=== PATIENT | female | born 1940 | race Caucasian/White ===

== ENCOUNTER 2018-12-03 08:43 | Emergency (ER) | payer OTHER ==
[2018-12-03 09:23] LABS: Absolute Lymphocytes (CBC) 0.6 K/uL (0.7-4.9); Absolute Monocytes 0.5 K/uL (0.1-1.3); Absolute Neutrophil 7.1 K/uL (1.8-8.0); Basophils % 0.5 % (0-1.3); Eosinophils % 0.8 % (0-4.4); Hematocrit 42.5 % (36.0-45.0); Lymphocytes % 7.3 % (15.3-44.8); MPV 7.5 fL (7.6-11.3); Monocytes % 6.6 % (3.3-12.3); RBC Red Blood Cell Count 4.81 M/uL (3.86-4.86)
[2018-12-03 09:24] LABS: Protime INR 1.03
[2018-12-03] MEDS ORDERED: IPRATROPIUM BROM 0.5MG/2.5ML ONE (09:32)
[2018-12-03] MEDS ORDERED: METHYLPREDNISOLONE 40 MG INJ ONE (09:32)
[2018-12-03] MEDS ORDERED: ALBUTEROL 2.5 MG/3 ML NEB SOL ONE (09:32)
[2018-12-03 09:46] LABS: ALT/SGPT 7 U/L (12-78); AST/SGOT 16 U/L (15-37); Albumin 3.3 g/dL (3.4-5.0); Alkaline Phosphatase 107 U/L (45-117); BUN Blood Urea Nitrogen 11 mg/dL (7-18); Bicarbonate 25 mmol/L (21-32); Bilirubin Direct 0.3 mg/dL (0-0.2); Bilirubin Total 0.9 mg/dL (0.2-1.0); Glucose Level 94 mg/dL (74-106); Magnesium 2.2 mg/dL (1.8-2.4); NT PRO-BNP 1311 pg/mL (<450); Potassium 4.6 mmol/L (3.5-5.1); Protein, Total 7.1 g/dL (6.4-8.2); Sodium Level 128 mmol/L (136-145); Troponin (Emerg Dept Use Only) < 0.02 ng/mL (0.0-0.045)
--- NOTE | 2018-12-03 10:29 | RAD REPORT ---
EXAM DESCRIPTION: RAD - Chest Single View - 12/03/2018 9:52 am CLINICAL HISTORY: Cough, shortness of breath COMPARISON: August 2018 TECHNIQUE: AP portable chest image was obtained 0922 hours . FINDINGS: Diffuse fibrotic lung pattern is present not significantly different from comparison. Tent ing of the right hemidiaphragm is noted along with bilateral costophrenic angle blunting. These findi ngs are not substantially different from comparison. No focal consolidation or mass. 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 Heart and vasculature are normal. No measurable pleural effusion and no pneumothorax. No acute bony abnormality seen. No acute aortic findings suspected. IMPRESSION: Advanced COPD changes are present not substantially different from comparison. Severity of chronic disease can mask early interstitial edema or infiltrate.
--- NOTE | 2018-12-03 11:08 | ER ---
Nurse's Notes [facility] Name: Lauryn Palm Age: 78 yrs Sex: Female : 1940 Arrival Date: 12/03/2018 Time: 08:44 Bed 8 Private MD: Bruno Guallpa E Diagnosis: Chronic obstructive pulmonary disease with acute lower respiratory infection Presentation: 12/03 08:56 Presenting complaint: Patient states: Cough, congestion, SOB x 4 days, Dr. Guallpa sent jl7 for evaluation. Transition of care: patient was not received from another setting of care. Onset of symptoms was November 29, 2018. Risk Assessment: Do you want to hurt yourself or someone else? Patient reports no desire to harm self or others. Initial Sepsis Screen: Does the patient meet any 2 criteria? No. Patient's initial sepsis screen is negative. Does the patient have a suspected source of infection? No. Patient's initial sepsis screen is negative. Care prior to arrival: None. 08:56 Method Of Arrival: Ambulatory [facility] 08:56 Acuity: TERRY 3 jl7 Triage Assessment: 09:09 General: Appears in no apparent distress. uncomfortable, Behavior is calm, cooperative, jl7 appropriate for age. Pain: Complains of pain in chest Pain does not radiate. Quality of pain is described as "Sore when coughing." Pain began 4 days ago. EENT: No signs and/or symptoms were reported regarding the EENT system. Neuro: Level of Consciousness is awake, alert, obeys commands, Oriented to person, place, time, situation. Cardiovascular: Heart tones present. Respiratory: Reports shortness of breath at rest cough that is productive, Airway is patent Respiratory effort is unlabored, shallow, Respiratory pattern is symmetrical, tachypnea Onset: The symptoms/episode began/occurred 4 days ago, the patient has mild shortness of breath. GI: No signs and/or symptoms were reported involving the gastrointestinal system. : No signs and/or symptoms were reported regarding the genitourinary system. Derm: Skin is pink, warm \\T\\ dry. Musculoskeletal: No signs and/or symptoms reported regarding the musculoskeletal system. Historical: - Allergies: 09:09 PENICILLINS; jl7 - PMHx: 09:09 COPD; Myocardial infarction; lung cancer; jl7 - PSHx: 09:09 Lobectomy, Right; jl7 - Immunization history:: Adult Immunizations unknown. - Social history:: Smoking status: Patient uses tobacco products, denies chronic smoking, but will smoke occasionally. - Ebola Screening: : No symptoms or risks identified at this time. Screenin:13 Abuse screen: Denies threats or abuse. Denies injuries from another. Nutritional jl7 screening: No deficits noted. Tuberculosis screening: No symptoms or risk factors identified. Fall Risk IV access (20 points). Total Rosenberg Fall Scale indicates No Risk (0-24 pts). Assessment: 09:13 General: See triage assessment. jl7 10:00 Reassessment: Patient appears in no apparent distress at this time. Patient and/or jl7 family updated on plan of care and expected duration. Pain level reassessed. Patient is alert, oriented x 3, equal unlabored respirations, skin warm/dry/pink. 11:00 Reassessment: Patient appears in no apparent distress at this time. No changes from jl7 previously documented assessment. Patient and/or family updated on plan of care and expected duration. Pain level reassessed. Patient is alert, oriented x 3, equal unlabored respirations, skin warm/dry/pink. Vital Signs: 09:09 BP 120 / 70; Pulse 79; Resp 28 S; Temp 97.6(O); Pulse Ox 100% on R/A; Weight 37.19 kg jl7 (R); Height 5 ft. 5 in. (165.10 cm) (R); Pain 5/10; 10:00 BP 128 / 53; Pulse 76; Resp 22 S; Pulse Ox 100% on R/A; jl7 11:00 BP 93 / 68; Pulse 109; Resp 22; Pulse Ox 95% ; jl7 12:00 BP 95 / 70; Pulse 103; Resp 21 S; Pulse Ox 96% on R/A; jl7 09:09 Body Mass Index 13.65 (37.19 kg, 165.10 cm) jl7 ED Course: 08:44 Patient arrived in ED. mr 08:44 Bruno Guallpa MD is Private Physician. mr 08:45 Yoana Hubbard, MONSTER is Primary Nurse. jl7 08:48 Syed Navarro PA is PHCP. cp 08:48 Syed Ascencio MD is Attending Physician. cp 08:57 Triage completed. jl7 09:09 Arm band placed on right wrist. jl7 09:13 Patient has correct armband on for positive identification. Placed in gown. Bed in low jl7 position. Call light in reach. Side rails up X 1. speech therapy teacher on. Pulse ox on. NIBP on. Warm blanket given. 09:13 EKG done, by bmw service technician. reviewed by Syed GONZALES. at1 09:13 Initial lab(s) drawn, by ED staff, sent to lab. Inserted saline lock: 22 gauge in right jl7 antecubital area, using aseptic technique. Blood collected. Inserted by YAMILEX Murphy. 09:54 XRAY Chest (1 view) In Process Unspecified. EDAK 11:06 Bruno Guallpa MD is Referral Physician. cp 12:03 No provider procedures requiring assistance completed. IV discontinued, intact, jl7 bleeding controlled, No redness/swelling at site. Pressure dressing applied. Administered Medications: 09:25 Drug: SOLU-Medrol 80 mg Route: IVP; Site: right antecubital; jl7 09:51 Follow up: Response: No adverse reaction jl7 09:27 Drug: Albuterol - atroVENT (3:1) (2.5 mg - 0.5 mg) 3 ml Route: Nebulizer; jl7 09:51 Follow up: Response: No adverse reaction jl7 Outcome: 11:07 Discharge ordered by MD. cp 12:03 Discharged to home via wheelchair. jl7 12:03 Condition: stable 12:03 Discharge instructions given to patient, family, Instructed on discharge instructions, follow up and referral plans. medication usage, Demonstrated understanding of instructions, follow-up care, medications, Prescriptions given X 3. 12:04 Patient left the ED. jl7 Signatures: Dispatcher [employer] EDAK Tano Sylwia Polanco, dynamite reclaimer EKG Tat1 Syed Navarro PA PA cp Leal, Jahala, RN RN jl7
--- NOTE | 2018-12-03 11:08 | EDPHYS ---
Physician Documentation [facility] Name: Lauryn Palm Age: 78 yrs Sex: Female : 1940 Arrival Date: 12/03/2018 Time: 08:44 Bed 8 Private MD: Bruno Guallpa E ED Physician Syed Ascencio HPI: 12/03 09:00 This 78 yrs old Female presents to ER via Ambulatory with complaints of cp Breathing Difficulty. 09:00 The patient has shortness of breath with light activity. cp 09:00 Onset: The symptoms/episode began/occurred 4 day(s) ago. Duration: The symptoms are cp continuous, and are steadily getting worse. Associated signs and symptoms: Pertinent positives: productive cough, Pertinent negatives: chest pain, diaphoresis, fever, hemoptysis, vomiting. Severity of symptoms: in the emergency department the symptoms are unchanged. The patient has been recently seen by a physician: Dr. Guallpa earlier today, with similar presenting complaints, and was sent to the [facility] Emergency Department for further evaluation. Historical: - Allergies: 09:09 PENICILLINS; jl7 - PMHx: 09:09 COPD; Myocardial infarction; lung cancer; jl7 - PSHx: 09:09 Lobectomy, Right; jl7 - Immunization history:: Adult Immunizations unknown. - Social history:: Smoking status: Patient uses tobacco products, denies chronic smoking, but will smoke occasionally. - Ebola Screening: : No symptoms or risks identified at this time. ROS: 09:05 Constitutional: Negative for body aches, chills, fever, poor PO intake. cp 09:05 Eyes: Negative for injury, pain, redness, and discharge. cp 09:05 ENT: Negative for drainage from ear(s), ear pain, sore throat, difficulty swallowing, difficulty handling secretions. 09:05 Cardiovascular: Negative for chest pain, edema, palpitations. 09:05 Respiratory: Positive for cough, shortness of breath, Negative for hemoptysis. 09:05 Abdomen/GI: Negative for abdominal pain, nausea, vomiting, and diarrhea, black/tarry stool, rectal bleeding. 09:05 Back: Negative for pain at rest, pain with movement, radiated pain. 09:05 : Negative for urinary symptoms. 09:05 Skin: Negative for cellulitis, rash. 09:05 Neuro: Negative for altered mental status, dizziness, headache, syncope, weakness. 09:05 All other systems are negative. Exam: 09:09 ECG was reviewed by the Attending Physician. cp 09:12 Constitutional: The patient appears in no acute distress, alert, awake, cp non-diaphoretic, non-toxic, well developed, well nourished. 09:12 Head/Face: Normocephalic, atraumatic. cp 09:12 Eyes: Periorbital structures: appear normal, Conjunctiva: normal, no exudate, no injection, Sclera: no appreciated abnormality, Lids and lashes: appear normal, bilaterally. 09:12 ENT: External ear(s): are unremarkable, Ear canal(s): are normal, clear, TM's: bulging, is not appreciated, bilaterally, dullness, bilaterally, erythema, is not appreciated, bilaterally, Nose: is normal, Mouth: Lips: moist, Oral mucosa: pink and intact, moist, Posterior pharynx: Airway: no evidence of obstruction, patent, Tonsils: are normal in appearance, Uvula: midline, swelling, is not appreciated, erythema, is not appreciated, exudate, is not appreciated. 09:12 Neck: ROM/movement: is normal, is supple, without pain, no range of motions limitations, no meningismus, no nuchal rigidity. 09:12 Chest/axilla: Inspection: normal, Palpation: is normal, no crepitus, no tenderness. 09:12 Cardiovascular: Rate: normal, Rhythm: regular, Edema: is not appreciated, JVD: is not appreciated. 09:12 Respiratory: the patient does not display signs of respiratory distress, Respirations: normal, no use of accessory muscles, no retractions, no splinting, no tachypnea, labored breathing, that is mild, Breath sounds: decreased breath sounds, that are moderate, throughout, stridor, is not appreciated. 09:12 Abdomen/GI: Inspection: abdomen appears normal, Palpation: abdomen is soft and non-tender, in all quadrants. 09:12 Skin: cellulitis, is not appreciated, no rash present. 09:12 Neuro: Orientation: to person, place \T\ time. Mentation: is normal, Cerebellar function: is grossly normal, Motor: moves all fours, strength is normal, Sensation: is normal. Vital Signs: 09:09 BP 120 / 70; Pulse 79; Resp 28 S; Temp 97.6(O); Pulse Ox 100% on R/A; Weight 37.19 kg jl7 (R); Height 5 ft. 5 in. (165.10 cm) (R); Pain 5/10; 10:00 BP 128 / 53; Pulse 76; Resp 22 S; Pulse Ox 100% on R/A; jl7 11:00 BP 93 / 68; Pulse 109; Resp 22; Pulse Ox 95% ; jl7 12:00 BP 95 / 70; Pulse 103; Resp 21 S; Pulse Ox 96% on R/A; jl7 09:09 Body Mass Index 13.65 (37.19 kg, 165.10 cm) jl7 MDM: 08:48 Patient medically screened. cp 09:00 Differential diagnosis: Bronchitis CHF exacerbation, Chronic Obstructive Pulmonary cp Disease pneumonia, Pneumothorax. 11:05 Data reviewed: vital signs, nurses notes, lab test result(s), EKG, radiologic studies, cp plain films. 11:05 Test interpretation: by ED physician or midlevel provider: ECG, plain radiologic cp studies. Counseling: I had a detailed discussion with the patient and/or guardian regarding: the historical points, exam findings, and any diagnostic results supporting the discharge/admit diagnosis, lab results, radiology results, the need for outpatient follow up, a family practitioner, to return to the emergency department if symptoms worsen or persist or if there are any questions or concerns that arise at home. Response to treatment: the patient's symptoms have markedly improved after treatment, and as a result, I will discharge patient. 12/03 08:53 Order name: Basic Metabolic Panel; Complete Time: 09:50 cp 12/03 09:50 Interpretation: Normal except: NA 128; CL 95; GFR 62. cp 12/03 08:53 Order name: CBC with Diff; Complete Time: 09:50 cp 12/03 10:32 Interpretation: Normal except: RDW 15.9; MPV 7.5; PERRY% 84.8; LYM% 7.3; LYMA 0.6. cp 12/03 08:53 Order name: LFT's; Complete Time: 09:50 cp 12/03 08:53 Order name: Magnesium; Complete Time: 09:50 cp 12/03 08:53 Order name: NT PRO-BNP; Complete Time: 09:50 cp 12/03 10:32 Interpretation: Abnormal: NT PRO-BNP 1311. cp 12/03 08:53 Order name: PT-INR; Complete Time: 09:50 cp 12/03 08:53 Order name: Troponin (emerg Dept Use Only); Complete Time: 09:50 cp 12/03 08:53 Order name: XRAY Chest (1 view); Complete Time: 10:31 cp 12/03 08:53 Order name: EKG; Complete Time: 08:54 cp 12/03 08:53 Order name: Cardiac monitoring; Complete Time: 09:26 cp 12/03 08:53 Order name: EKG - Nurse/Tech; Complete Time: 09:27 cp 12/03 08:53 Order name: Influenza Screen (a \T\ B); Complete Time: 09:50 cp 12/03 08:53 Order name: IV Saline Lock; Complete Time: 09:27 cp 12/03 08:53 Order name: Labs collected and sent; Complete Time: 09:27 cp 12/03 08:53 Order name: O2 Per Protocol; Complete Time: 09:27 cp 12/03 08:53 Order name: O2 Sat Monitoring; Complete Time: 09:27 cp 12/03 10:33 Order name: Misc. Order: ambulate patient with pulse ox on; Complete Time: 11:44 cp EC:09 Rate is 84 beats/min. Rhythm is regular. [place] interval is normal. QRS interval is normal. cp QT interval is normal. T waves are Flattened in lead aVL. Interpreted by me. Reviewed by me. Administered Medications: 09:25 Drug: SOLU-Medrol 80 mg Route: IVP; Site: right antecubital; [facility] 09:51 Follow up: Response: No adverse reaction [facility] 09:27 Drug: Albuterol - atroVENT (3:1) (2.5 mg - 0.5 mg) 3 ml Route: Nebulizer; [facility] 09:51 Follow up: Response: No adverse reaction [facility] Disposition: 12/03/18 11:07 Discharged to Home. Impression: Chronic obstructive pulmonary disease with acute lower respiratory infection. - Condition is Stable. - Discharge Instructions: Chronic Obstructive Pulmonary Disease. - Prescriptions for Tessalon Perles 100 mg Oral Capsule - take 1 capsule by ORAL route every 8 hours As needed; 20 capsule. Zithromax Z- Bill 250 mg Oral Tablet - take 1 tablet by ORAL route as directed for 5 days Day 1 - take two (2) tablets one time. Day 2, 3, 4 , 5 take one (1) tablet once daily.; 6 tablet. Prednisone 20 mg Oral Tablet - take 2 tablet by ORAL route once daily for 5 days; 10 tablet. - Medication Reconciliation Form, Thank You Letter, Antibiotic Education, Prescription Opioid Use form. - Follow up: Bruno Guallpa MD; When: 2 - 3 days; Reason: Recheck today's complaints. - Problem is an acute exacerbation. - Symptoms have improved. Addendum: 12/06/2018 05:28 Co-signature as Attending Physician, Syed Ascencio MD I agree with the assessment and c leiva plan of care. Signatures: Dispatcher [employer] EDPR Syed Ascnecio MD MD cha Page, Corey, PA PA Yoana Doss RN RN jl7 Corrections: (The following items were deleted from the chart) 12/03 12:04 11:07 12/03/2018 11:07 Discharged to Home. Impression: Chronic obstructive pulmonary jl7 disease with acute lower respiratory infection. Condition is Stable. Forms are Medication Reconciliation Form, Thank You Letter, Antibiotic Education, Prescription Opioid Use. Follow up: Bruno Guallpa; When: 2 - 3 days; Reason: Recheck today's complaints. Problem is an acute exacerbation. Symptoms have improved. cp
--- NOTE | 2018-12-03 16:22 | EKG ---
Test Date: 2018-12-03 Test Time: 09:01:08 Crime Scene Specialist: BERNARDA MEASUREMENT RESULTS: Intervals: Rate: 84 OR: 116 QRSD: 76 QT: 362 QTc: 427 [place]: P: 68 OR: 116 QRS: 64 T: 66 INTERPRETIVE STATEMENTS: Normal sinus rhythm Normal ECG No previous ECG available for comparison Electronically Signed On 12-03-18 16:20:26 FARM HELPER by Jose Real
== END 2018-12-03 12:04 | disposition home or self-care (01) ==
LOC: ER 08:43
DX: J44.0 Chronic obstructive pulmonary disease with (acute) lower respiratory infection (principal); J22 Unspecified acute lower respiratory infection; Z72.0 Tobacco use; Z88.0 Allergy status to penicillin; Z85.118 Personal history of other malignant neoplasm of bronchus and lung; Z90.2 Acquired absence of lung [part of]
CPT/HCPCS: 36415; 71045; 80048; 80076; 83735; 83880; 84484; 85025; 85610; 87804 ×2; 93005; 94640; 96374; 99285; J2920

== ENCOUNTER 2019-05-17 16:07 | Inpatient (IN) | payer OTHER ==
--- OUTSIDE RECORDS SUMMARY | 2019-05-17 16:09 | XMS REPORT ---
:1940 [facility] Rich. [address] [place] [id number] Care Team Providers Name Role Phone Unavailable Unavailable Unavailable Problems This patient has no known problems. Allergies, Adverse Reactions, Alerts This patient has no known allergies or adverse reactions. Medications This patient has no known medications.
[2019-05-17] MEDS ORDERED: NA CHLORIDE 0.9% 1,000 ML ONE (16:48)
[2019-05-17 16:50] LABS: Absolute Lymphocytes (CBC) 0.5 K/uL (0.7-4.9); Basophils % 0.2 % (0-1.3); Hematocrit 43.5 % (36.0-45.0); Lymphocytes % 6.7 % (15.3-44.8); MPV 7.3 fL (7.6-11.3); RBC Red Blood Cell Count 4.76 M/uL (3.86-4.86)
[2019-05-17] MEDS ORDERED: METHYLPREDNISOLONE 125 MG INJ ONE (16:50)
[2019-05-17] MEDS ORDERED: LEVALBUTEROL 1.25 MG/3 ML NEB ONE (16:50)
[2019-05-17 17:11] LABS: BUN Blood Urea Nitrogen 8 mg/dL (7-18); Bicarbonate 26 mmol/L (21-32); Glucose Level 107 mg/dL (74-106); NT PRO-BNP 1172 pg/mL (<450); Potassium 4.5 mmol/L (3.5-5.1); Sodium Level 128 mmol/L (136-145); Troponin (Emerg Dept Use Only) < 0.02 ng/mL (0.0-0.045)
[2019-05-17 17:24] LABS: Blood Morphology Comment NOT SEEN (NOT SEEN); Platelet Estimate ADEQ; Urine White Blood Cell Casts OK
--- NOTE | 2019-05-17 17:57 | ER ---
Nurse's Notes [facility] Name: Lauryn Palm Age: 78 yrs Sex: Female : 1940 Arrival Date: 05/17/2019 Time: 16:11 Bed 2 Private MD: Diagnosis: Chronic obstructive pulmonary disease with (acute) exacerbation Presentation: 05/17 16:12 Presenting complaint: Patient states: hx of COPD, increasing SOB X 2 weeks, diagnosed iw with bronchitis, was started on antibiotics, not getting better, +productive cough, no fever, hx of lung cancer, also has swelling to RFA and right breast, states "they don't know what's wrong with me, they think maybe it's lymph nodes from my cancer" , also ran out of her home O2, 89% RA. Transition of care: patient was not received from another setting of care. Onset of symptoms was May 02, 2019. Risk Assessment: Do you want to hurt yourself or someone else? Patient reports no desire to harm self or others. Initial Sepsis Screen: Does the patient meet any 2 criteria? RR > 20 per min. HR > 90 bpm. Does the patient have a suspected source of infection? Yes: Productive cough/pneumonia. Care prior to arrival: None. 16:12 Method Of Arrival: Wheelchair iw 16:12 Acuity: TERRY 2 iw Triage Assessment: 19:17 General: Appears in no apparent distress. Respiratory: Onset: The symptoms/episode tr5 began/occurred. Respiratory: the patient has moderate shortness of breath. Historical: - Allergies: 16:17 PENICILLINS; sg - PMHx: 16:17 COPD; Lung Cancer; Myocardial infarction; sg - PSHx: 16:17 Lobectomy, Right; sg - Immunization history:: Adult Immunizations up to date. - Social history:: Smoking status: Patient/guardian denies using tobacco. - Ebola Screening: : Patient negative for fever greater than or equal to 101.5 degrees Fahrenheit, and additional compatible Ebola Virus Disease symptoms Patient denies exposure to infectious person Patient denies travel to an Ebola-affected area in the 21 days before illness onset No symptoms or risks identified at this time. - Family history:: not pertinent. - Hospitalizations: : No recent hospitalization is reported. Screenin:30 Abuse screen: Denies threats or abuse. Denies injuries from another. Nutritional sg screening: No deficits noted. Tuberculosis screening: No symptoms or risk factors identified. Never had TB. Fall Risk None identified. Sepsis Screening: . Infection: Patient has suspected or documented infection. SIRS - Systemic Inflammatory Response Syndrome: 2 or more indicates positive screen: [heart rate greater than 90 beats per minute] [respiratory rate is greater than 20 breaths per minute]. Assessment: 16:27 General: Appears in no apparent distress. well groomed, well developed, well nourished, sg Behavior is calm, cooperative, appropriate for age. Pain: Complains of pain in buttocks Quality of pain is described as tender, reports the stretcher causes "pain on the butt bone". Neuro: Level of Consciousness is awake, alert, obeys commands, Oriented to person, place, time, Color Checker Roving Or Yarn are equal bilaterally Moves all extremities. Gait is steady. Cardiovascular: Capillary refill is brisk in bilateral fingers Patient's skin is warm and dry. Chest pain is denied. Respiratory: Airway is patent Respiratory effort is even, labored, Respiratory pattern is symmetrical, tachypnea Breath sounds are diminished in left posterior lower lobe and right posterior lower lobe. GI: Abdomen is flat, non-distended, Reports normal bowel habits, tolerance of fluids, tolerance of food. : No signs and/or symptoms were reported regarding the genitourinary system. EENT: Oral mucosa is dry. Throat is clear. Derm: Skin is pale, bilateral hands noted to be blue at this time. Musculoskeletal: Circulation, motion, and sensation intact. Range of motion: intact in all extremities. 16:30 Reassessment: Patient appears in no apparent distress at this time. Patient and/or sg family updated on plan of care and expected duration. Pain level reassessed. a code sepsis has been initiated per protocol but a lactate has not been ordered, labs have been collected at this time. 16:48 Reassessment: Patient appears in no apparent distress at this time. Patient and/or sg family updated on plan of care and expected duration. Pain level reassessed. Patient is alert, oriented x 3, equal unlabored respirations, skin warm/dry/pink. Patient states symptoms have not improved. 17:30 Reassessment: Patient appears in no apparent distress at this time. Patient and/or sg family updated on plan of care and expected duration. Pain level reassessed. Patient is alert, oriented x 3, equal unlabored respirations, skin warm/dry/pink. Patient states feeling better. 18:07 Reassessment: at bedside evaluating pt at this time. sg 18:10 Reassessment: pt requesting something to eat, offered turkey sandwich, pt reports sg difficulty chewing due to dental problems, pt offered chicken noodle soup, pt provided with soup, no assistance needed at this time. 19:15 Reassessment: Patient appears in no apparent distress at this time. Patient and/or tr5 family updated on plan of care and expected duration. Pain level reassessed. Patient is alert, oriented x 3, equal unlabored respirations, skin warm/dry/pink. 19:15 Cardiovascular: Rhythm is regular. tr5 Vital Signs: 16:12 BP 138 / 80; Pulse 117; Resp 24 S; Temp 98.2(TE); Pulse Ox 89% on R/A; Weight 36.29 kg; iw Height 5 ft. 5 in. (165.10 cm); Pain 0/10; 17:48 BP 132 / 77; Pulse 95; Resp 24; Pulse Ox 98% on 4 lpm NC; sg 19:00 BP 110 / 79; Pulse 102; Resp 19; Temp 97.6(O); Pulse Ox 92% on 4 lpm NC; tr5 16:12 Body Mass Index 13.31 (36.29 kg, 165.10 cm) iw ED Course: 16:11 Patient arrived in ED. em1 16:13 Charlie Kimbrough, RN is Primary Nurse. sg 16:15 Kb Robertson MD is Attending Physician. rn 16:16 Triage completed. iw 16:17 Arm band placed on. sg 16:29 Missed attempt(s): 22 gauge in left forearm. Bleeding controlled, band aid applied, em1 catheter tip intact. 16:30 Patient has correct armband on for positive identification. Placed in gown. Bed in low sg position. Side rails up X 1. night monitor on. Pulse ox on. NIBP on. Warm blanket given. Head of bed elevated. 16:36 EKG done, by liquified natural gas technician. reviewed by Kb Robertson MD. at1 16:40 Initial lab(s) drawn, by me, sent to lab. First set of blood cultures drawn by me. rv 16:41 Inserted saline lock: 22 gauge in left antecubital area, using aseptic technique. Blood rv collected. 16:44 XRAY CXR (1 view) In Process Unspecified. EDMS 17:53 Suze Henriquez MD is Hospitalizing Provider. rn 18:40 Diet: Tolerated well chicken noodle soup. sg 19:00 transfer. tr5 19:00 No provider procedures requiring assistance completed. Patient admitted, IV remains in tr5 place. Administered Medications: 16:40 Drug: SOLU-Medrol 125 mg Route: IVP; Site: left antecubital; sg 17:30 Follow up: Response: No adverse reaction sg 16:40 Drug: Xopenex (3) 1.25 mg Route: Inhalation; sg 16:40 Drug: NS 0.9% 500 ml Route: IV; Rate: bolus; Site: left antecubital; sg Outcome: 17:53 Decision to Hospitalize by Provider. rn 19:00 Admitted to Med/surg accompanied by tech, via stretcher, with oxygen. tr5 19:00 Condition: stable 19:00 Instructed on the need for transfer. 19:52 Admitted to Med/surg Report called to MONSTER Goins lp1 20:10 Patient left the ED. tr5 Signatures: Dispatcher [employer] EDMS Charlie Kimbrough RN RN sg Williams, Irene, RN RN iw Nieto, Roman, MD MD rn Martinez, Eric em1 Smiley Celeste RN RN lp1 Sylwia Hugo, central supply assistant EKG Tat1 Pako Kirk RN RN rv Rodriguez, Tommie, RN RN tr5 Corrections: (The following items were deleted from the chart) 19:33 19:00 BP 110 / 79; Pulse 102bpm; Resp 19bpm; Pulse Ox 4% Nasal Cannula; tr5 tr5 19:51 19:00 BP 110 / 79; Pulse 102bpm; Resp 19bpm; Pulse Ox 4% Nasal Cannula; Temp 97.6F tr5 Oral; tr5
--- NOTE | 2019-05-17 17:57 | EDPHYS ---
Physician Documentation [facility] Name: Lauryn Palm Age: 78 yrs Sex: Female : 1940 Arrival Date: 05/17/2019 Time: 16:11 Bed 2 Private MD: ED Physician Kb Robertson HPI: 05/17 17:43 This 78 yrs old Female presents to ER via Wheelchair with complaints of rn Breathing Difficulty. 17:43 The patient has shortness of breath at rest, with light activity. Onset: The rn symptoms/episode began/occurred 3 week(s) ago. Duration: The symptoms are intermittent. The patient's shortness of breath is aggravated by coughing, exertion, light activity, talking, walking. Severity of symptoms: At their worst the symptoms were mild in the emergency department the symptoms are unchanged. The patient has experienced similar episodes in the past. Reports increased sob, this is 3rd ER visit in 3 weeks, feels worse, told had bronchitis, took steroids and abx, but made her sick so stopped, only has concentrator at home, + productive cough and increased dyspnea. Had negative CT chest at [facility] 1 week ago during this episode, and seen this week by Dr. Real with negative 4 extremity u/s as well as ECHO/carotids. Using inhaler without help and with increased frequency today. . Historical: - Allergies: 16:17 PENICILLINS; sg - PMHx: 16:17 COPD; Lung Cancer; Myocardial infarction; sg - PSHx: 16:17 Lobectomy, Right; sg - Immunization history:: Adult Immunizations up to date. - Social history:: Smoking status: Patient/guardian denies using tobacco. - Ebola Screening: : Patient negative for fever greater than or equal to 101.5 degrees Fahrenheit, and additional compatible Ebola Virus Disease symptoms Patient denies exposure to infectious person Patient denies travel to an Ebola-affected area in the 21 days before illness onset No symptoms or risks identified at this time. - Family history:: not pertinent. - Hospitalizations: : No recent hospitalization is reported. ROS: 17:43 Constitutional: Negative for fever. rn 17:47 Eyes: Negative for injury, pain, redness, and discharge, Neck: Negative for injury, rn pain, and swelling, Cardiovascular: Negative for chest pain, palpitations, focal edema RUE and right breast Respiratory: + sob and cough Abdomen/GI: Negative for abdominal pain, nausea, vomiting, diarrhea, and constipation, MS/Extremity: Negative for injury and deformity, Skin: Negative for injury, rash, and discoloration, Neuro: + generalized weakness Exam: 17:47 Constitutional: This is a well developed, well nourished patient who is awake, alert, rn moderate tachypnea Head/Face: Normocephalic, atraumatic. ENT: dry MM, no stridor Cardiovascular: Tachycardic, regular Respiratory: + diminished breath sounds left lung diffusely, coarse RLL breath sounds with exp wheezing, + tachypnea, no retractions Abdomen/GI: soft, non-tender MS/ Extremity: Pulses equal, no cyanosis. Neurovascular intact. Full, normal range of motion. Equal circumference. Neuro: Awake and alert, GCS 15, oriented to person, place, time, and situation. Cranial nerves II-XII grossly intact. Motor strength 5/5 in all extremities. Sensory grossly intact. Cerebellar exam normal. Vital Signs: 16:12 BP 138 / 80; Pulse 117; Resp 24 S; Temp 98.2(TE); Pulse Ox 89% on R/A; Weight 36.29 kg; iw Height 5 ft. 5 in. (165.10 cm); Pain 0/10; 17:48 BP 132 / 77; Pulse 95; Resp 24; Pulse Ox 98% on 4 lpm NC; sg 19:00 BP 110 / 79; Pulse 102; Resp 19; Temp 97.6(O); Pulse Ox 92% on 4 lpm NC; tr5 16:12 Body Mass Index 13.31 (36.29 kg, 165.10 cm) iw MDM: 16:15 Patient medically screened. rn 17:50 Differential diagnosis: Anemia Anxiety Reaction Bronchitis CHF exacerbation, Chronic rn Obstructive Pulmonary Disease pneumonia, pulmonary edema, reactive airway disease. Data reviewed: vital signs, nurses notes, lab test result(s), EKG, radiologic studies, plain films, and as a result, I will admit patient. Counseling: I had a detailed discussion with the patient and/or guardian regarding: the historical points, exam findings, and any diagnostic results supporting the discharge/admit diagnosis, lab results, radiology results, the need for further work-up and treatment in the hospital. Response to treatment: the patient's symptoms have mildly improved after treatment, and as a result, I will admit patient. Admission orders: after a detailed discussion of the patient's condition and case, the admit orders are written by me. ED course: Will admit for failure outpt therapy, is s/p abx and steroids (partially due to intolerance), and getting worse, improved here but not well enough to go home.Admitted to Dr. Henriquez. . 05/17 16:24 Order name: Blood Culture Adult (2) rn 05/17 16:24 Order name: BMP; Complete Time: 17: 05/17 16:24 Order name: CBC with Diff; Complete Time: 17: 05/17 16:24 Order name: NT PRO-BNP; Complete Time: 17: 05/17 16:24 Order name: Troponin (emerg Dept Use Only); Complete Time: 17: 05/17 17:01 Order name: CBC Smear Scan; Complete Time: 17: EDKS 05/17 16:24 Order name: XRAY CXR (1 view) 05/17 16:24 Order name: EKG; Complete Time: 16:25 05/17 16:24 Order name: Cardiac monitoring; Complete Time: 16:28 05/17 16:24 Order name: EKG - Nurse/Tech; Complete Time: 16: 05/17 17:58 Order name: CONS Physician Consult EDKS 05/17 16:24 Order name: IV Saline Lock; Complete Time: 16:43 05/17 16:24 Order name: Labs collected and sent; Complete Time: 16:43 05/17 16:24 Order name: O2 Per Protocol; Complete Time: 16: rn 05/17 16:24 Order name: O2 Sat Monitoring; Complete Time: 16:28 rn Administered Medications: 16:40 Drug: SOLU-Medrol 125 mg Route: IVP; Site: left antecubital; sg 17:30 Follow up: Response: No adverse reaction sg 16:40 Drug: Xopenex (3) 1.25 mg Route: Inhalation; sg 16:40 Drug: NS 0.9% 500 ml Route: IV; Rate: bolus; Site: left antecubital; sg Disposition: 05/17/19 17:53 Hospitalization ordered by Suze Henriquez for Inpatient Admission. Preliminary diagnosis is Chronic obstructive pulmonary disease with (acute) exacerbation. - Bed requested for Telemetry/MedSurg (Inpatient). - Status is Inpatient Admission. tr5 - Condition is Stable. - Problem is an ongoing problem. - Symptoms have improved. UTI on Admission? No Signatures: Dispatcher [employer] EDMS Fela Ramirez RN RN dw Charlie Kimbrough RN RN Kb Robertson MD MD rn Rodriguez, Tommie, RN RN tr5 Corrections: (The following items were deleted from the chart) 17:46 17:43 Reports increased sob, this is 3rd ER visit in 3 weeks, feels worse, told had rn bronchitis, took steroids and abx, but made her sick so stopped, only has concentrator at home, + productive cough and increased dyspnea. Had negative CT chest at [facility] 1 week ago during this episode, and seen this week by Dr. Real with negative 4 extremity u/s as well as ECHO/carotids. . rn 18:29 17:53 Hospitalization Ordered by Suze Henriquez MD for Inpatient Admission. Preliminary dw diagnosis is Chronic obstructive pulmonary disease with (acute) exacerbation. Bed requested for Telemetry/MedSurg (Inpatient). Status is Inpatient Admission. Condition is Stable. Problem is an ongoing problem. Symptoms have improved. UTI on Admission? No. rn 20:10 18:29 05/17/2019 17:53 Hospitalization Ordered by Suze Henriquez MD for Inpatient tr5 Admission. Preliminary diagnosis is Chronic obstructive pulmonary disease with (acute) exacerbation. Bed requested for Telemetry/MedSurg (Inpatient). Status is Inpatient Admission. Condition is Stable. Problem is an ongoing problem. Symptoms have improved. UTI on Admission? No. dw
--- NOTE | 2019-05-17 18:37 | P.HP ---
Certification for Inpatient Patient admitted to: Observation With expected LOS: <2 Midnights Patient will require the following post-hospital care: None Practitioner: I am a practitioner with admitting privileges, knowledge of patient current condition, hospital course, and medical plan of care. Services: Services provided to patient in accordance with Admission requirements found in Title 42 Section 412.3 of the Code of Federal Regulations Patient History Date of Service: 05/17/19 Primary Care Provider: Dr Garcia Reason for admission: SOB History of Present Illness: 78 y/o F with Hx of COPD, HTN and Lung Cancer S.P lobectomy presenting to the Hospital for SOB. SOB started 2 weeks ago got pregressively worse. Was seen in 2 different ER and dc home with Dx of Bronchitis. Pt stated her oxygen concentrator at the house is not working. She uses 2.5L NC at home. Denies having fever, chills, N/V or CP at this time. States that was taking inhalers, abx po and steroids with no improvement. Thus decided to come to ER for further checkup. In the ER was found to be hypoxic, SOB and Thus admitted to the hospital for further alf medications list reviewed: Yes - Past Medical/Surgical History Has patient received pneumonia vaccine in the past: No -: HTN -: COPD -: Lung Cancer -: Right Lobectomy - Family History Family History: Reviewed- Non-Contributory - Social History Smoking Status: Former smoker Counseled patient to stop smoking for: more than 10 minutes Smoking therapy provided: Yes Patient receptive to therapy: No Alcohol use: No CD- Drugs: No Caffeine use: No Place of Residence: Home Review of Systems 10-point ROS is otherwise unremarkable Physical Examination - Physical Exam General: Alert, Acute distress HEENT: Atraumatic, PERRLA, Mucous membr. moist/pink, EOMI, Sclerae nonicteric Neck: Supple, 2+ carotid pulse no bruit, No LAD, Without JVD or thyroid abnormality Respiratory: Clear to auscultation bilaterally, Normal air movement Cardiovascular: Regular rate/rhythm, Normal S1 S2 Gastrointestinal: Normal bowel sounds, No tenderness Musculoskeletal: No tenderness Integumentary: No rashes Neurological: Normal gait, Normal speech, Normal strength at 5/5 x4 extr, Normal tone, Normal affect Lymphatics: No axilla or inguinal lymphadenopathy - Studies Laboratory Data (last 24 hrs) 05/17/19 16:40: WBC 7.4, Hgb 14.8, Hct 43.5, Plt Count 302 05/17/19 16:40: Sodium 128 L, Potassium 4.5, BUN 8, Creatinine 0.74, Glucose 107 H Assessment and Plan - Problems (Diagnosis) (1) COPD exacerbation Current Visit: Yes Status: Acute Plan: COPD excerbation 2.2 to nonworking concentrator also with Failed outpt therapy -Duonebs, Steriods, oxygen -Pulmonology consulted. Awaiting -Consult CM to arrange Oxygen at the house. (2) HTN (hypertension) Current Visit: Yes Status: Chronic Qualifiers: Hypertension type: essential hypertension Qualified Code(s): I10 - Essential (primary) hypertension (3) Lung cancer Current Visit: Yes Status: Chronic Plan: S/P Lobectomy Qualifiers: Laterality: right Lung location: middle lobe of lung Qualified Code(s): C34.2 - Malignant neoplasm of middle lobe, bronchus or lung Discharge Plan: Home Plan to discharge in: 24 Hours - Advance Directives Does patient have a Living Will: No Does patient have a Durable POA for Healthcare: No - Code Status/Comfort Care Code Status Assessed: Yes Critical Care: No
--- NOTE | 2019-05-17 19:54 | RAD REPORT ---
EXAM DESCRIPTION: RAD - Chest Single View - 05/17/2019 4:45 pm CLINICAL HISTORY: Cough, COPD, dyspnea COMPARISON: November 2018 TECHNIQUE: AP portable chest image was obtained 1645 hours . FINDINGS: Patient has chronic interstitial fibrotic lung disease. Minimal left-sided costophrenic an gle blunting is present. Interstitial and alveolar opacities are present in the medial right base and a right pleural effusion is present. Heart and vasculature are normal. No pneumothorax. No acute bony abnormality seen. No acute aortic f indings suspected. IMPRESSION: Probable right base pneumonia with small right pleural effusion. Suspected minimal left pleural effusion. Underlying COPD.
[2019-05-17] MEDS ORDERED: AZITHROMYCIN IV 250 MG in NA CHLORIDE 0.9% 250 ML IVPB SCH (21:00)
[2019-05-17] MEDS: predniSONE 10 MG TAB PO SCH (21:00)
[2019-05-17 21:01] VITALS: BMI 13.2
[2019-05-17 21:59] LABS: Urine Appearance CLEAR; Urine Bilirubin NEGATIVE (NEG); Urine Blood NEGATIVE (NEG); Urine Color YELLOW; Urine Glucose NEGATIVE (NEG); Urine Protein NEGATIVE (NEG); Urine Urobilinogen 0.2 mg/dL (0.2-1.0)
[2019-05-17 22:02] LABS: Urine Microscopic Reflex ORDER UMIC
[2019-05-17 22:21] LABS: Urine Culture Reflex Order REFLEXED
[2019-05-17 22:22] LABS: Urine Bacteria <20 /HPF (<20)
[2019-05-17 22:23] LABS: Urine RBC <5 /HPF (NONE SEEN)
[2019-05-17] MEDS ORDERED: AZITHROMYCIN 500 MG INJ IVPB ONE (22:59)
[2019-05-17] MEDS: ALBUTEROL 2.5 MG/3 ML NEB SOL NEB PRN (23:05)
[2019-05-17] MEDS: IPRATROPIUM BROM 0.5MG/2.5ML NEB PRN (23:05)
[2019-05-17] MEDS ORDERED: NA CHLORIDE 0.9% 250 ML ONE (23:53)
[2019-05-18 06:15] LABS: Absolute Lymphocytes (CBC) 0.2 K/uL (0.7-4.9); Basophils % 0.1 % (0-1.3); Hematocrit 40.9 % (36.0-45.0); MPV 7.4 fL (7.6-11.3); RBC Red Blood Cell Count 4.49 M/uL (3.86-4.86)
[2019-05-18 06:27] LABS: Albumin 2.7 g/dL (3.4-5.0); Bilirubin Total 0.7 mg/dL (0.2-1.0); Potassium 4.5 mmol/L (3.5-5.1); Protein, Total 6.2 g/dL (6.4-8.2)
[2019-05-18] MEDS: ALBUTEROL 2.5 MG/3 ML NEB SOL NEB PRN ×2 (07:35→13:50)
[2019-05-18] MEDS: IPRATROPIUM BROM 0.5MG/2.5ML NEB PRN ×2 (07:35→13:50)
[2019-05-18] MEDS: Levofloxacin500mg IV 500 MG/100 ML BAG IV SCH (08:44)
[2019-05-18] MEDS: ENOXAPARIN 40 MG/0.4 ML SQ SCH (08:45)
[2019-05-18] MEDS: predniSONE 10 MG TAB PO SCH ×2 (08:46→20:59)
[2019-05-18] MEDS ORDERED: Levofloxacin 750mg IV 750 MG/150 ML BAG IV SCH (09:00)
[2019-05-18] MEDS ORDERED: CEFTRIAXONE 1 GM/NS 50 ML 1 GM/50 ML BAG IV SCH (09:00)
[2019-05-18] MEDS ORDERED: FUROSEMIDE 20 MG/ 2ML VIAL IV ONE (10:24)
[2019-05-18] MEDS: GUAIFENESIN 600 MG SA TAB PO SCH ×2 (10:46→20:58)
--- NOTE | 2019-05-18 10:50 | EKG ---
Test Date: 2019-05-17 Test Time: 16:29:29 Machine Rebuilder: BERNARDA MEASUREMENT RESULTS: Intervals: Rate: 96 NV: 120 QRSD: 76 QT: 332 QTc: 419 [place]: P: NV: 120 QRS: 51 T: 55 INTERPRETIVE STATEMENTS: Normal sinus rhythm with sinus arrhythmia Normal ECG Compared to ECG 12/03/2018 09:01:08 No significant changes Electronically Signed On 05-18-19 10:49:34 CDT by Abilio Crisostomo
[2019-05-18 11:01] LABS: Arterial Blood Carboxyhemoglob 1.6 % (0-1.5); Blood Gas Oxyhemoglobin 91.9 % (94-97)
--- NOTE | 2019-05-18 12:01 | RAD REPORT ---
EXAM DESCRIPTION: CT - Thorax Wo Con - 05/18/2019 11:44 am CLINICAL HISTORY: sob COMPARISON: May 17, 2019 chest x-ray TECHNIQUE: Computed axial tomography of the chest was obtained. Contrast was not requested. All CT scans are performed using dose optimization technique as appropriate and may include automated exposure control or mA/KV adjustment according to patient size. FINDINGS: The evaluation of mediastinum, cirsta and vessels is limited secondary to lack of IV contras t administration. Small to moderate left and small right pleural effusions Mild right lower lobe opacities. Moderate centrilobular emphysema. No mediastinal or hilar lymphadenopathy is seen. Diffuse edema within the subcutaneous tissues IMPRESSION: Mild right lower lobe opacities probably represent pneumonia COPD
--- NOTE | 2019-05-18 12:17 | P.CNS ---
Date of Consult: 05/18/19 Primary Care Provider: Dr Garcia Chief Complaint: SOB History of Present Illness: Patient is 78 years of age with a history of COPD active smoker admitted with worsening dyspnea cough congestion worse over the past 2 days she went to see a primary care doctor 2 weeks ago and was treated with antibiotics and steroids did not improve also started complaining of swelling of the right arm and the right breast and she attributes it to the steroids patient is compliant with the medication does not see a counter clerk here also has had lobectomy for lung cancer patient has home oxygen Allergies Penicillins Allergy (Verified 05/17/19 20:23) Anaphylaxis Home Medications: Albuterol Sulfate [Ventolin Hfa] 2 puff IH BIDP PRN 05/17/19 Aspirin [Aspirin EC 81 MG] 81 mg PO DAILY 05/17/19 Cholecalciferol (Vitamin D3) [Vitamin D3] 1 cap PO DAILY 05/17/19 Pnv No.95/Ferrous Fum/Folic AC [ Caplet] 1 tab PO DAILY 05/17/19 Umeclidinium Brm/Vilanterol Tr [Anoro Ellipta 62.5-25 Mcg INH] 1 puff IH DAILY 05/17/19 - Past Medical/Surgical History Diabetic: No -: HTN -: COPD -: Lung Cancer -: anemia -: ME -: Peripheral vascular disease -: Right Lobectomy / 1 right rib removed -: bilateral eyes cataract surgery -: hysterectomy -: R femur fx and surgery (titanium priscilla) -: cardiac stents - Family History Father Medical History: Heart disease Mother Notes: none per patient - Social History Smoking Status: Current some day smoker Alcohol use: No CD- Drugs: No Caffeine use: No Place of Residence: Home Review of Systems General: Weakness Respiratory: Cough, Shortness of Breath Neurological: Weakness Physical Examination Temp Pulse Resp BP Pulse Ox 97.3 F 96 H 24 H 111/53 L 96 05/18/19 12:00 05/18/19 12:00 05/18/19 12:00 05/18/19 12:00 05/18/19 12:00 General: Alert, Oriented x3, Mild distress Respiratory: Diminished, Expiratory wheezes Cardiovascular: No edema, Regular rate/rhythm Gastrointestinal: Normal bowel sounds, Soft and benign Laboratory Data (last 24 hrs) 05/17/19 16:40: WBC 7.4, Hgb 14.8, Hct 43.5, Plt Count 302 05/17/19 16:40: Sodium 128 L, Potassium 4.5, BUN 8, Creatinine 0.74, Glucose 107 H - Problems (1) COPD exacerbation Current Visit: Yes Status: Acute Plan: Patient is 78 years of age admitted with COPD exacerbation she has a lung cancer removed on the right side still continues to smoke has nebulizers at home and was recently prescribed Anoro by her primary care physician/. Incidentally developed some swelling of the right arm and her breasts patient claims is 2-3 size the left this started recently in the past 2 weeks labs all reviewed patient is mildly hypoxic hyporcarbic CT scan as shows a pleural effusion on the left side with possibly a right lower lobe infiltrate continue with steroids antibiotics for now echocardiogram vital signs in oxygenation or stable console not to smoke Not sure why her right arm and a right breast a swollen I HAVE ORDERED ECHOCARDIOGRAM WITH DOPPLER IN ADDITION TO HER RIGHT ARM DOPPLER TO RULE OUT DVT
[2019-05-18] MEDS: NICOTINE 14 MG/PAT TD SCH (12:41)
--- NOTE | 2019-05-18 15:57 | ECHO ---
HEIGHT: 5 ft 5 in WEIGHT: 79 lb 8 oz DATE OF STUDY: 05/18/[address]: See Faulkner MD 2-DIMENSIONAL: YES M.MODE: YES DOPPLER: YES COLOR FLOW: YES TDS: YES PORTABLE: NO DEFINITY: NO BUBBLE STUDY: NO DIAGNOSIS: CHRONIC OBSTRUCTIVE PULMONARY DISEASE, POSSIBLE CONGESTIVE HEART FAILURE CARDIAC HISTORY: CATHERIZATION: NO SURGERY: NO PROSTHETIC VALVE: NO PACEMAKER: NO MEASUREMENTS (cm) DIASTOLIC (NORMALS) SYSTOLIC (NORMALS) IVSd 0.7 (0.6-1.2) LA Diam 2.9 (1.9-4.0) LVEF 78% LVIDd 3.0 (3.5-5.7) LVIDs 1.6 (2.0-3.5) %FS 45% LVPWd 0.8 (0.6-1.2) Ao Diam 2.6 (2.0-3.7) 2 DIMENSIONAL ASSESSMENT: RIGHT ATRIUM: NORMAL LEFT ATRIUM: NORMAL RIGHT VENTRICLE: NORMAL LEFT VENTRICLE: NORMAL TRICUSPID VALVE: NORMAL MITRAL VALVE: MITRAL ANNULAR CALCIFICATION PULMONIC VALVE: NORMAL AORTIC VALVE: SCLEROSIS PERICARDIAL EFFUSION: NONE AORTIC ROOT: NORMAL LEFT VENTRICULAR WALL MOTION: NORMAL. DOPPLER/COLOR FLOW: MILD TRICUSPID REGURGITATION, MILD PULMONARY HYPERTENSION. ESTIMATED RIGHT VENTRICULAR SYSTOLIC PRESSURE 43 MMHG. NO AORTIC STENOSIS OR REGURGITATION. COMMENTS: NORMAL LEFT VENTRICULAR EJECTION FRACTION. MITRAL ANNULAR CALCIFICATION. AORTIC SCLEROSIS WITH NO STENOSIS OR REGURGITATION. MILD TRICUSPID REGURGITATION. MILD PULMONARY HYPERTENSION. TECHNOLOGIST: MARIO CRAWLEY [facility]
--- NOTE | 2019-05-18 17:26 | P.PN ---
Subjective Date of Service: 05/18/19 Primary Care Provider: Dr Garcia Chief Complaint: SOB Subjective: No new changes, Tolerating diet, Doing well, Other (Appeared to be in distress this AM due to coughing.) Review of Systems 10-point ROS is otherwise unremarkable Physical Examination - Vital Signs Temperature: 97.3 F Blood Pressure: 111/53 Pulse: 96 Respirations: 24 Pulse Ox (%): 96 - Physical Exam General: Alert, In no apparent distress, Cachectic, Mild distress Respiratory: Normal air movement, Crackles/rales, Expiratory wheezes, Inspiratory wheezes Cardiovascular: Regular rate/rhythm, Normal S1 S2 Gastrointestinal: Normal bowel sounds, No tenderness Musculoskeletal: No tenderness Integumentary: No rashes Neurological: Normal speech, Normal tone, Normal affect Lymphatics: No axilla or inguinal lymphadenopathy - Studies Microbiology Data (last 24 hrs): 05/17/19 16:40 Blood - Blood Anaerobic Blood Culture - Final Medications List Reviewed: Yes Assessment And Plan - Current Problems (Diagnosis) (1) COPD exacerbation Current Visit: Yes Status: Acute Plan: COPD excerbation 2.2 to nonworking concentrator also with Failed outpt therapy -Duonebs, Steriods, Mucinex, IV antibiotics, CPT and oxygen -Pulmonology consulted. Kevin appreciated -Consult CM to arrange Oxygen at the house. (2) HTN (hypertension) Current Visit: Yes Status: Chronic Qualifiers: Hypertension type: essential hypertension Qualified Code(s): I10 - Essential (primary) hypertension (3) Lung cancer Current Visit: Yes Status: Chronic Plan: S/P Lobectomy Qualifiers: Laterality: right Lung location: middle lobe of lung Qualified Code(s): C34.2 - Malignant neoplasm of middle lobe, bronchus or lung Discharge Plan: Home Plan to discharge in: 48 Hours - Code Status/Comfort Care Code Status Assessed: Yes Critical Care: No
[2019-05-18] MEDS: ARFORMOTEROL TARTRATE 15 MCG/2 ML VIAL.NEB NEB SCH (20:00)
[2019-05-18] MEDS: ENSURE ENLIVE 237 ML CAN PO SCH (20:58)
[2019-05-19] MEDS: IPRATROPIUM BROM 0.5MG/2.5ML NEB PRN ×3 (02:47→13:42)
[2019-05-19 06:13] LABS: Absolute Lymphocytes (CBC) 0.3 K/uL (0.7-4.9); Basophils % 0.5 % (0-1.3); Lymphocytes % 3.3 % (15.3-44.8); MPV 7.3 fL (7.6-11.3); RBC Red Blood Cell Count 4.63 M/uL (3.86-4.86)
[2019-05-19 06:32] LABS: Albumin 2.8 g/dL (3.4-5.0); Bilirubin Total 0.5 mg/dL (0.2-1.0); Potassium 4.1 mmol/L (3.5-5.1); Protein, Total 6.3 g/dL (6.4-8.2)
[2019-05-19] MEDS: ARFORMOTEROL TARTRATE 15 MCG/2 ML VIAL.NEB NEB SCH ×2 (08:11→20:15)
[2019-05-19] MEDS: ALBUTEROL 2.5 MG/3 ML NEB SOL NEB PRN ×2 (08:11→13:42)
[2019-05-19] MEDS: NICOTINE 14 MG/PAT TD SCH (08:39)
[2019-05-19] MEDS: predniSONE 10 MG TAB PO SCH ×2 (08:39→21:01)
[2019-05-19] MEDS: GUAIFENESIN 600 MG SA TAB PO SCH ×2 (08:39→21:01)
[2019-05-19] MEDS: ENOXAPARIN 40 MG/0.4 ML SQ SCH (08:40)
[2019-05-19] MEDS: Levofloxacin500mg IV 500 MG/100 ML BAG IV SCH (08:41)
[2019-05-19] MEDS: ENSURE ENLIVE 237 ML CAN PO SCH ×2 (08:41→21:00)
[2019-05-19] MEDS ORDERED: METHYLPREDNISOLONE 40 MG INJ IV SCH (12:00)
--- NOTE | 2019-05-19 13:07 | P.PN ---
Subjective Date of Service: 05/19/19 Primary Care Provider: Dr Garcia Chief Complaint: SOB Review of Systems 10-point ROS is otherwise unremarkable Physical Examination - Vital Signs Temperature: 97.6 F Blood Pressure: 111/56 Pulse: 102 Respirations: 28 Pulse Ox (%): 97 - Physical Exam General: Alert, In no apparent distress Neck: Supple, JVD not distended Respiratory: Normal air movement, Expiratory wheezes, Inspiratory wheezes Cardiovascular: Regular rate/rhythm, Normal S1 S2 Gastrointestinal: Normal bowel sounds, No tenderness Musculoskeletal: No tenderness Integumentary: No rashes Neurological: Normal speech, Normal tone, Normal affect Lymphatics: No axilla or inguinal lymphadenopathy - Studies Microbiology Data (last 24 hrs): 05/17/19 16:40 Blood - Blood Anaerobic Blood Culture - Final Medications List Reviewed: Yes Assessment And Plan - Current Problems (Diagnosis) (1) COPD exacerbation Current Visit: Yes Status: Acute Plan: COPD excerbation 2.2 to nonworking concentrator also with Failed outpt therapy -Duonebs, Steriods, Mucinex, PO antibiotics, CPT and oxygen -Pulmonology consulted. Kevin appreciated -Consult CM to arrange Oxygen at the house. (2) HTN (hypertension) Current Visit: Yes Status: Chronic Qualifiers: Hypertension type: essential hypertension Qualified Code(s): I10 - Essential (primary) hypertension (3) Lung cancer Current Visit: Yes Status: Chronic Plan: S/P Lobectomy Qualifiers: Laterality: right Lung location: middle lobe of lung Qualified Code(s): C34.2 - Malignant neoplasm of middle lobe, bronchus or lung (4) Generalized weakness Current Visit: Yes Status: Acute Plan: Patient with generalized weakness most likely secondary to acute disease process -will have patient worked with physical therapy here in the hospital -patient may require home health at home. - Plan Pending clinical improvement at this time. Will have patient work with physical therapy today here in the hospital. Patient already has oxygen set up at the house. Will have her work here in the hospital for next 24 hr and discharged her home after that. Discharge Plan: Home Plan to discharge in: Greater than 2 days - Code Status/Comfort Care Code Status Assessed: Yes Critical Care: No
[2019-05-20] MEDS: IPRATROPIUM BROM 0.5MG/2.5ML NEB PRN ×2 (03:20→09:25)
[2019-05-20] MEDS: ALBUTEROL 2.5 MG/3 ML NEB SOL NEB PRN (03:20)
[2019-05-20 06:19] LABS: Absolute Lymphocytes (CBC) 0.2 K/uL (0.7-4.9); Basophils % 0.2 % (0-1.3); Hematocrit 39.3 % (36.0-45.0); Lymphocytes % 2.5 % (15.3-44.8); MPV 7.4 fL (7.6-11.3); RBC Red Blood Cell Count 4.34 M/uL (3.86-4.86)
[2019-05-20 07:00] LABS: Albumin 2.6 g/dL (3.4-5.0); Bilirubin Total 0.4 mg/dL (0.2-1.0); Potassium 4.2 mmol/L (3.5-5.1); Protein, Total 5.7 g/dL (6.4-8.2)
[2019-05-20] MEDS: NICOTINE 14 MG/PAT TD SCH (08:18)
[2019-05-20] MEDS: predniSONE 10 MG TAB PO SCH (08:18)
[2019-05-20] MEDS: GUAIFENESIN 600 MG SA TAB PO SCH (08:18)
[2019-05-20] MEDS: ENOXAPARIN 40 MG/0.4 ML SQ SCH (08:20)
[2019-05-20] MEDS: ENSURE ENLIVE 237 ML CAN PO SCH (08:20)
[2019-05-20] MEDS ORDERED: levoFLOXacin 500 MG TAB PO SCH (09:00)
[2019-05-20] MEDS: ARFORMOTEROL TARTRATE 15 MCG/2 ML VIAL.NEB NEB SCH (09:25)
[2019-05-20 10:00] VITALS: BP 120/58; TEMP 98
[2019-05-20 12:41] VITALS: O2SAT 100
--- NOTE | 2019-05-20 17:20 | P.DS ---
Admission Date: 05/19/19 Discharge Date: 05/20/19 Primary Care Provider: Dr Garcia Disposition: ROUTINE DISCHARGE Discharge Condition: FAIR Reason for Admission: SOB Consultations: Pulmonology - Problems (1) COPD exacerbation Status: Acute (2) HTN (hypertension) Status: Chronic Qualifiers: Hypertension type: essential hypertension Qualified Code(s): I10 - Essential (primary) hypertension (3) Lung cancer Status: Chronic Qualifiers: Laterality: right Lung location: middle lobe of lung Qualified Code(s): C34.2 - Malignant neoplasm of middle lobe, bronchus or lung (4) Generalized weakness Status: Acute Brief History of Present Illness: 78 y/o F with Hx of COPD, HTN and Lung Cancer S.P lobectomy presenting to the Hospital for SOB. SOB started 2 weeks ago got pregressively worse. Was seen in 2 different ER and dc home with Dx of Bronchitis. Pt stated her oxygen concentrator at the house is not working. She uses 2.5L NC at home. Denies having fever, chills, N/V or CP at this time. States that was taking inhalers, abx po and steroids with no improvement. Thus decided to come to ER for further checkup. In the ER was found to be hypoxic, SOB and Thus admitted to the hospital for further care Hospital Course: Overall during the hospital stay patient remained stable Patient was initially admitted to the hospital for acute respiratory distress secondary to COPD exacerbation secondary to malfunctioning O2 concentrator versus mucous plug. Patient was admitted to the hospital was placed on duo nebs , steroids and antibiotics. Pro calcitonin was negative and thus antibiotics were discontinued. Patient had Mucinex and CPT ordered here in the hospital as well. Pulmonology was consulted. Who recommended the patient be discharged home once she is able to get the concentrator at home on low-dose steroids. Once patient had concentrator arranged for at home she was discharged home under stable condition once her acute respiratory distress was resolved. Patient was brought back to 3 L of nasal cannula and was saturating 97-98% and thus was discharged home under stable condition. Vital Signs/Physical Exam: Temp Pulse Resp BP Pulse Ox 98 F 99 H 24 H 120/58 L 97 05/20/19 08:00 05/20/19 08:00 05/20/19 08:00 05/20/19 08:00 05/20/19 08:00 General: Alert, In no apparent distress HEENT: Atraumatic, PERRLA, EOMI Neck: Supple, JVD not distended Respiratory: Clear to auscultation bilaterally, Normal air movement Cardiovascular: Regular rate/rhythm, Normal S1 S2 Gastrointestinal: Normal bowel sounds, No tenderness Musculoskeletal: No tenderness Integumentary: No rashes Neurological: Normal speech, Normal tone, Normal affect Lymphatics: No axilla or inguinal lymphadenopathy Laboratory Data at Discharge: WBC 9.6 K/uL (4.3-10.9) 05/20/19 06:05 Hgb 13.4 g/dL (12.0-15.0) 05/20/19 06:05 Hct 39.3 % (36.0-45.0) 05/20/19 06:05 Plt Count 298 K/uL (152-406) 05/20/19 06:05 Sodium 132 mmol/L (136-145) L 05/20/19 06:05 Potassium 4.2 mmol/L (3.5-5.1) 05/20/19 06:05 BUN 14 mg/dL (7-18) 05/20/19 06:05 Creatinine 0.80 mg/dL (0.55-1.3) 05/20/19 06:05 Glucose 113 mg/dL (74-106) H 05/20/19 06:05 Total Bilirubin 0.4 mg/dL (0.2-1.0) 05/20/19 06:05 AST 11 U/L (15-37) L 05/20/19 06:05 ALT 7 U/L (12-78) L 05/20/19 06:05 Alkaline Phosphatase 85 U/L (45-117) 05/20/19 06:05 Home Medications: Albuterol Sulfate [Ventolin Hfa] 2 puff IH BIDP PRN 05/17/19 Aspirin [Aspirin EC 81 MG] 81 mg PO DAILY 05/17/19 Cholecalciferol (Vitamin D3) [Vitamin D3] 1 cap PO DAILY 05/17/19 Pnv No.95/Ferrous Fum/Folic AC [ Caplet] 1 tab PO DAILY 05/17/19 Umeclidinium Brm/Vilanterol Tr [Anoro Ellipta 62.5-25 Mcg INH] 1 puff IH DAILY 05/17/19 Albuterol Neb [Proventil 0.083% Neb Soln] 2.5 mg IH TIDP PRN #30 amp 05/20/19 Arformoterol Tartrate [Brovana] 15 mcg NEB BIDRESP #1 vial.neb 05/20/19 levoFLOXacin [Levaquin*] 500 mg PO DAILY #7 tab 05/20/19 predniSONE [Deltasone*] 10 mg PO BID #10 tab 05/20/19 New Medications: Albuterol Neb [Proventil 0.083% Neb Soln] 2.5 mg IH TIDP PRN #30 amp PRN Reason: Shortness Of Breath Arformoterol Tartrate [Brovana] 15 mcg NEB BIDRESP #1 vial.neb levoFLOXacin [Levaquin*] 500 mg PO DAILY #7 tab predniSONE [Deltasone*] 10 mg PO BID #10 tab Patient Discharge Instructions: Please f.u with PCP and Dr Rivera in 1 week. . New medication. Levaquin 500mg daily for 7 days. Prednisone 10mg BID for 5 days Diet: Regular Activity: Ad laura Followup: See Faulkner MD [ACTIVE - CAN ADMIT] - 1 Week (lung doctor- Call to schedule an appointment) Cali Fernandes MD [Primary Care Provider] - 1 Week (primary care physician- Call to schedule an appointment)
== END 2019-05-20 11:45 | disposition home or self-care (01) | DRG 191 ==
LOC: ER 16:07 → ERHOLD 18:32 → 4TH 19:52 → OBSVTOIN 05-19 13:42
PROVIDERS: ADMIT Family Medicine; ATTEND Family Medicine
DX: J44.1 Chronic obstructive pulmonary disease with (acute) exacerbation (principal); C34.2 Malignant neoplasm of middle lobe, bronchus or lung; R64 Cachexia; Z68.1 Body mass index [BMI] 19.9 or less, adult; R06.03 Acute respiratory distress; Z99.81 Dependence on supplemental oxygen; I10 Essential (primary) hypertension; I73.9 Peripheral vascular disease, unspecified; I25.2 Old myocardial infarction; Z79.82 Long term (current) use of aspirin; Z79.51 Long term (current) use of inhaled steroids; Z87.891 Personal history of nicotine dependence; Z95.5 Presence of coronary angioplasty implant and graft; Z90.2 Acquired absence of lung [part of]; Z88.0 Allergy status to penicillin
CPT/HCPCS: 36415; 71045; 71250; 80048; 80053; 81003; 81015; 82805; 83605; 83880; 84484; 85025; 87040; 87086; 87088; 93005; 93306; 94640; 94667; 94668; 96374; 97161; 99285; G0378; J0456; J1650; J1940; J2920; J2930; J7030; J7512; J7605